=== PATIENT | female | born 1980 | race Caucasian/White ===

== ENCOUNTER 2021-02-09 14:48 | Emergency (ER) | payer MEDICAID ==
[~2021-02-09] VITALS: Ht 160 cm; Wt 65.0 kg
[~2021-02-09 14:48] MED LIST: HYDR-2214 PO; MULTIVITAMIN; NONE PER PT
[2021-02-09 15:19] VITALS: BP 125/69
--- NOTE | 2021-02-09 15:56 | NUR ---
RECEIVED REPORT FROM [facility]. PT RESTING [place]. NADN. DEE CLARK AT BEDSIDE FOR EVAL.
== END 2021-02-09 16:27 | disposition home or self-care (01) ==
LOC: ED 15:18
DX: L03.113 Cellulitis of right upper limb (principal)
CPT/HCPCS: 99283